=== PATIENT | female | born 1990 | race Caucasian/White ===

== ENCOUNTER 2016-07-13 08:22 | Emergency (ER) | payer MEDICAID, SELFPAY | END 2016-07-13 09:01 | disposition home or self-care (01) | LOC: BURERS 08:22 | DX: S02.5XXA Fracture of tooth (traumatic), initial encounter for closed fracture (principal); F32.9 Major depressive disorder, single episode, unspecified; X58.XXXA Exposure to other specified factors, initial encounter | CPT/HCPCS: 64400 ==

== ENCOUNTER 2016-10-07 10:45 | Emergency (ER) | payer SELFPAY ==
[2016-10-07] MEDS ORDERED: Ondansetron HCl/PF 4 MG/2 ML Vial ONE (11:18)
[2016-10-07] MEDS ORDERED: Famotidine In NaCl 20 mg/50 ml Premix Bag ONE (11:18)
[2016-10-07 11:19] LABS: #Basophils 0.1 thou/uL (0.0-0.2); #Eosinphils 0.2 thou/uL (0.0-0.7); #Lymphocytes 1.1 thou/uL (1.20-3.40); #Monocytes 0.7 thou/uL (0.11-0.59); #Neutrophils 3.3 thou/uL (1.40-6.50); %Eosinophils 3.3 % (0.0-10.0); %Lymphocytes 21.5 % (21.0-51.0); %Monocytes 12.5 % (0.0-10.0); %Neutrophils 61.7 % (42.0-75.0); Hemoglobin 15.4 g/dL (12.0-16.0); Mean Corpuscular HGB CONC 34.1 g/dL (32.0-36.0); Mean Corpuscular Hemoglobin 30.5 pg (27.0-31.0); Mean Corpuscular Volume 89.4 fl (81.0-99.0); Mean Platelet Volume 8.9 fL (7.4-10.4); Platelet Count 203 thou/uL (130-400); RBC Distribution Width 11.9 % (11.5-14.5); Red Blood Cell (RBC) Count 5.03 mill/uL (4.20-5.40); White Blood Cell (WBC) Count 5.3 thou/uL (4.8-10.8)
[2016-10-07 11:35] LABS: ALT (SGPT) 33 U/L (8-55); AST (SGOT) 19 U/L (5-34); Albumin 4.4 g/dL (3.5-5.0); Alkaline Phosphatase 89 U/L (40-150); Anion Gap 15 mmol/L (10-20); BUN (Urea Nitrogen) 12 mg/dL (7.0-18.7); Bilirubin, Total 0.5 mg/dL (0.2-1.2); Calc. Creatinine Clearance 0 mL/min (70-130); Calcium 9.1 mg/dL (7.8-10.44); Carbon Dioxide 25 mmol/L (22-29); Chloride 102 mmol/L (98-107); Estimated GFR-MDRD 89; Globulin 3.3 g/dL (2.4-3.5); Glucose 98 mg/dL (70-105); Lipase 30 U/L (8-78); Potassium 3.7 mmol/L (3.5-5.1); Protein, Total 7.7 g/dL (6.0-8.3); Sodium 138 mmol/L (136-145)
[2016-10-07 12:06] LABS: Blood, Urine Trace (Negative); Clarity Clear (Clear); Glucose, Urine (Dipstick) Negative (Negative); Leukocyte Negative (Negative); Nitrite Negative (Negative); Protein, Urine (Dipstick) 30 mg/dL (Neg-Trace)
[2016-10-07 12:09] LABS: Bilirubin Negative (Negative)
[2016-10-07 12:10] LABS: Bacteria/HPF 1+ HPF (None Seen); RBC/HPF 0-3 HPF (0-3); Squamous Epithelial 0-3 HPF (0-3); WBC/HPF 0-3 HPF (0-3)
== END 2016-10-07 12:39 | disposition home or self-care (01) ==
LOC: BURERS 10:45
DX: E86.0 Dehydration (principal); R19.7 Diarrhea, unspecified; R11.2 Nausea with vomiting, unspecified; F32.9 Major depressive disorder, single episode, unspecified
CPT/HCPCS: 36415; 80053; 81003; 81015; 83690; 85025; 96374; 96375; J2405

== ENCOUNTER 2016-12-11 16:31 | Emergency (ER) | payer SELFPAY ==
[2016-12-11 17:13] LABS: Bilirubin Negative (Negative); Blood, Urine Negative (Negative); Clarity Clear (Clear); Glucose, Urine (Dipstick) Negative (Negative); Leukocyte Negative (Negative); Nitrite Negative (Negative); Protein, Urine (Dipstick) Negative (Neg-Trace); Urobilinogen 0.2 mg/dL (0.2-1.0)
[2016-12-11 17:15] LABS: Pregnancy Test - Urine (BHCG) Negative (Negative)
[2016-12-11 17:16] LABS: Pregu Control Background? CLEAR/WHITE (CLR/WHITE); Pregu Control Bar Appear? YES (CONTROL BAR)
[2016-12-11] MEDS ORDERED: cefTRIAXone\\ROCEPHIN 500 MG VIAL ONE (18:03)
--- NOTE | 2016-12-11 20:35 | RAD ---
ABDOMEN TWO VIEWS: Date: 12-11-16 FINDINGS: Supine and erect films show no free air beneath the diaphragm. The gas pattern is normal with no sig n of obstruction. The bones and soft tissue showed no acute changes. At most, there is some mild inc rease in fecal material in the colon. No pathologic calcifications were detected. An IUD was noted i n the midline of the pelvis. IMPRESSION: No acute abdominal finding. POS: HOME
[2016-12-14 08:19] LABS: Chlamydia by PCR Not Detected (NotDetected); GC by PCR Not Detected (NotDetected)
== END 2016-12-11 18:21 | disposition home or self-care (01) ==
LOC: BURERS 16:31
DX: N76.0 Acute vaginitis (principal); F32.9 Major depressive disorder, single episode, unspecified; Z97.5 Presence of (intrauterine) contraceptive device
CPT/HCPCS: 74020; 81003; 81025; 87480; 87491; 87510; 87591; 87660; 96372; J0696

== ENCOUNTER 2016-12-26 10:56 | Emergency (ER) | payer SELFPAY ==
[2016-12-27] MEDS ORDERED: Amiodarone In Dextrose,Iso-Osm 0 ML ONE (11:49)
== END 2016-12-26 11:12 | disposition home or self-care (01) ==
LOC: BURERS 10:56
DX: J06.9 Acute upper respiratory infection, unspecified (principal); F32.9 Major depressive disorder, single episode, unspecified
CPT/HCPCS: 99282

== ENCOUNTER 2017-03-15 14:47 | Emergency (ER) | payer SELFPAY | END 2017-03-15 15:42 | disposition home or self-care (01) | LOC: BURERS 14:47 | DX: J11.1 Influenza due to unidentified influenza virus with other respiratory manifestations (principal); F32.9 Major depressive disorder, single episode, unspecified | CPT/HCPCS: 99283 ==

== ENCOUNTER 2017-11-19 11:55 | Emergency (ER) | payer SELFPAY ==
[2017-11-19 12:22] LABS: Pregnancy Test - Urine (BHCG) Negative (Negative); Pregu Control Background? CLEAR/WHITE (CLR/WHITE); Pregu Control Bar Appear? YES (CONTROL BAR)
[2017-11-19 12:23] LABS: Bilirubin Negative (Negative); Blood, Urine Negative (Negative); Clarity Slightly Cloudy (Clear); Glucose, Urine (Dipstick) Negative (Negative); Leukocyte Negative (Negative); Nitrite Negative (Negative); Protein, Urine (Dipstick) Negative (Neg-Trace); Urobilinogen 0.2 mg/dL (0.2-1.0); pH, Urine 7.5 (5.0-9.0)
[2017-11-19] MEDS ORDERED: Ketorolac Tromethamine 60 MG/2 ML VIAL ONE (12:40)
--- NOTE | 2017-11-19 19:03 | RAD ---
RIGHT RIBS WITH PA CHEST: 11/19/2017 FINDINGS: All ribs appear intact. No fractures are appreciated. The heart is normal in size, and the lungs ar e clear. There is no sign of infiltrate, effusion, or pneumothorax. The mediastinum appears normal, and the trachea is midline. IMPRESSION: No acute thoracic findings. POS: HOME
== END 2017-11-19 13:10 | disposition home or self-care (01) ==
LOC: BURERS 11:55
DX: S20.211A Contusion of right front wall of thorax, initial encounter (principal); F32.9 Major depressive disorder, single episode, unspecified; W22.8XXA Striking against or struck by other objects, initial encounter
CPT/HCPCS: 81003; 81025; 96372; J1885

== ENCOUNTER 2018-05-21 11:53 | Emergency (ER) | payer SELFPAY | END 2018-05-21 12:14 | disposition home or self-care (01) | LOC: BURERS 11:53 | DX: J11.1 Influenza due to unidentified influenza virus with other respiratory manifestations (principal); F32.9 Major depressive disorder, single episode, unspecified | CPT/HCPCS: 99281 ==

== ENCOUNTER 2020-11-17 18:25 | Emergency (ER) | payer MEDICAID, OTHER ==
[2020-11-17] MEDS ORDERED: Ibuprofen 800 MG TAB ONE (19:09)
[2020-11-18 08:14] LABS: SARS-CoV-2 PCR by NAA DETECTED (NotDetected)
== END 2020-11-17 19:45 | disposition home or self-care (01) ==
LOC: BURERS 18:25
DX: U07.1 COVID-19 (principal)
CPT/HCPCS: 99283; U0003; U0005

== ENCOUNTER 2023-10-23 14:51 | Emergency (ER) | payer MEDICAID, OTHER ==
[2023-10-23 16:14] LABS: #Basophils 0.1 thou/uL (0.0-0.2); #Eosinphils 0.2 thou/uL (0.0-0.7); #Lymphocytes 1.8 thou/uL (1.20-3.40); #Monocytes 0.8 thou/uL (0.11-0.59); %Basophils 0.8 % (0.0-1.0); %Eosinophils 2.5 % (0.0-10.0); %Lymphocytes 17.8 % (21.0-51.0); %Monocytes 7.8 % (0.0-10.0); %Neutrophils 71.1 % (42.0-75.0); Hematocrit 32.3 % (36.0-47.0); Hemoglobin 10.7 g/dL (12.0-16.0); Mean Corpuscular Hemoglobin 29.8 pg (27.0-31.0); Mean Corpuscular Volume 90.3 fl (78.0-98.0); Mean Platelet Volume 6.4 fL (7.4-10.4); Platelet Count 397 10x3/uL (130-400); RBC Distribution Width 13.6 % (11.5-14.5); Red Blood Cell (RBC) Count 3.58 mill/uL (4.20-5.40); White Blood Cell (WBC) Count 9.8 10x3/uL (4.8-10.8)
[2023-10-23] MEDS ORDERED: Morphine 10 MG/ML VIAL ONE (16:18)
[2023-10-23 16:28] LABS: INR-International Normal Ratio 0.9; Prothrombin Time 12.2 sec (12.0-14.7)
[2023-10-23 16:32] LABS: ALT (SGPT) 20 U/L (8-55); AST (SGOT) 17 U/L (5-34); Albumin 3.7 g/dL (3.5-5.0); Alkaline Phosphatase 102 U/L (40-110); Anion Gap 16 mmol/L (10-20); BUN (Urea Nitrogen) 15 mg/dL (7.0-18.7); Bilirubin, Total 0.2 mg/dL (0.2-1.2); Calc. Creatinine Clearance 0 mL/min (70-130); Calcium 9.8 mg/dL (7.8-10.44); Carbon Dioxide 20 mmol/L (22-29); Chloride 107 mmol/L (98-107); Estimated GFR 106; Globulin 3.5 g/dL (2.4-3.5); Glucose 108 mg/dL (70-105); Potassium 3.8 mmol/L (3.5-5.1); Protein, Total 7.2 g/dL (6.0-8.3); Sodium 139 mmol/L (136-145)
[2023-10-23 17:53] LABS: Bilirubin Negative (Negative); Blood, Urine Negative (Negative); Clarity Slightly Cloudy (Clear); Glucose, Urine (Dipstick) Negative (Negative); Ketone, Urine Negative (Negative); Leukocyte Negative (Negative); Nitrite Negative (Negative); Protein, Urine (Dipstick) Negative (Neg-Trace); Urobilinogen 0.2 mg/dL (Less than 2); pH, Urine 5.5 (5.0-9.0)
[2023-10-23 17:56] LABS: Specific Gravity, Urine 1.039 (1.002-1.036)
[2023-10-23 18:05] LABS: CAUTI Indications for Culture Spinal Cord Injury; RBC/HPF 0-3 HPF (0-3); WBC/HPF 0-3 HPF (0-3)
[2023-10-23 18:06] LABS: Bacteria/HPF Rare-Few HPF (None Seen)
[2023-10-23 18:08] LABS: Urine Culture Reflex No No
[2023-10-23] MEDS ORDERED: Morphine 4 MG/ML VIAL ONE ×2 (18:08→20:28)
[2023-10-23] MEDS ORDERED: Morphine 2 MG/ML VIAL ONE (20:28)
== END 2023-10-23 23:00 | disposition short-term general hospital (02) ==
LOC: BURERS 14:51
DX: M54.9 Dorsalgia, unspecified (principal)
CPT/HCPCS: 72132; 80053; 81001; 85025; 85610; 96374; 96376; J2270; J2272